=== PATIENT | female | born 1935 | race African-American/Black ===

== ENCOUNTER → 2016-05-11 | Outpatient (CLI) | payer MEDICARE, MEDICAID | LOC: WI 09:28 | PROVIDERS: ATTEND Internal Medicine Geriatric Medicine | DX: Z12.31 Encounter for screening mammogram for malignant neoplasm of breast (principal); Z78.0 Asymptomatic menopausal state | CPT/HCPCS: 77067; G0202 ==

== ENCOUNTER 2016-05-31 06:28 | Inpatient (IN) | payer MEDICARE, MEDICAID ==
[2016-05-31] MEDS ORDERED: ALBUTEROL SULFATE 0.083% NEB 2.5 MG/3 ML AMPUL NEB ONE ×2 (06:45→09:33)
--- NOTE | 2016-05-31 06:56 | ER Document Report ---
ED Respiratory Problem - General Time seen by provider: 06:30 Mode of Arrival: Medic Information source: Emergency Med Personnel, [facility] Records TRAVEL OUTSIDE OF THE [place] IN LAST 30 DAYS: No - HPI Patient complains to provider of: Cough, Short of breath Onset: Other - see HPI note Sputum color: Brown Associated symptoms: Congestion, Cough, Difficulty breathing, Wheezing <RADHA CHIN - Last Filed: 05/31/16 07:30> <LETTY RITTER - Last Filed: 05/31/16 17:51> - General Stated Complaint: RESPIRATORY DISTRESS Notes: Patient is a 80 year old female presenting to the emergency department for difficulty breathing. Patient's family state that the patient started getting sick on Sunday. Patient has a cough with brown sputum. Patient's cough has been very junky. Patient is on dialysis and attended her session on Sunday. Patient has dialysis on Sunday, Sunday, Sunday and patient is scheduled for dialysis today. Patient has a fistula on her right side. EMS states patient was 78% oxygen saturation on room air at arrival. Patient was placed on oxygen and brought into the ED. Upon arrival patient had O2 saturation in the lower to mid 90s. Patient was placed on BiPAP which brought her O2 saturation to 100%. Patient has bilateral BKA, hypertension, hypercholesterolemia, diabetes mellitus , gout, depression, and arthritis. Patient's PCP is Dr. Simon. (RADHA CHIN) This 80-year-old female patient brought to emergency room by EMS for shortness of breath with a brown productive cough for the past 2 days. She is supposed to go to dialysis this morning. She last dialyzed 2 days ago. She is noted to have wheezing throughout her chest. The patient was also found to be hypotensive. Her oxygen saturation was 89%, did improve with oxygen. After the patient arrived, she was placed on BiPAP and became more alert. She was able to state she has been coughing up brown sputum for a few days, and later that she started having pain in her right abdomen last night. Chest x-ray suggests some poor vascular congestion, but also multifocal infiltrates. Her lactic acid is elevated, her wheezing and rhonchi, her hypotension and history of brown sputum all fit a pattern of pneumonia. Initial labs came back, she was found to have a lactic acid 7.9, and AST of 1286 with ALT of 778. These serum transaminases were in the low normal range one-year ago. She had her gallbladder removed some time ago. Her blood pressure began to drop from the upper 90s into the 80s, so Levophed drip was started. The general surgeon on-call has come down to place a central line in the patient. (LETTY RITTER) - Related Data Allergies/Adverse Reactions: Penicillins Allergy (Verified 12/07/15 16:52) Home Medications: Current Home Medications Allopurinol [Zyloprim 100 mg Tablet] 100 mg PO DAILY 05/31/16 [History] Aspirin [Ecotrin 81 mg EC Tablet] 81 mg PO DAILY 05/31/16 [History] Atorvastatin Calcium [Lipitor 10 mg Tablet] 10 mg PO QHS 05/31/16 [History] Calcium Acetate [Phoslo 667 mg Capsule] 2 cap PO PCSUPPER 05/31/16 [History] Cetirizine HCl [Zyrtec 5 mg Tablet] 5 mg PO DAILY 05/31/16 [History] Cinacalcet HCl [Sensipar 60 mg Tablet] 60 mg PO DAILY 05/31/16 [History] Fluticasone Propionate [Flonase Nasal [place] 50 Mcg/[place] 16 gm] 1 spray NASL DAILY 05/31/16 [History] Insulin Regular, Human [Humulin R (Reg) Insulin 100 unit/mL] 8 unit SQ BID 05/31 [History] Magnesium Oxide [Mag-Ox 400 mg Tablet] 400 mg PO DAILY 05/31/16 [History] Midodrine HCl 2.5 mg PO TID 05/31/16 [History] NPH, Human Insulin Isophane [Humulin N (NPH) Insulin 100 unit/mL] 10 unit SQ BID 05/31/16 [History] Nateglinide [Starlix] 120 mg PO TID 05/31/16 [History] [place]-3 Fatty Acids/Fish Oil [Fish Oil 1,000 mg Capsule] 1 cap PO DAILY [History] Vit B Cmplx 3/FA/Vit C/Biotin [Nephro-[place] Rx Tablet] 1 tab PO DAILY 05/31/16 [ History] Zinc [Zinc Chelated] 50 mg PO DAILY 05/31/16 [History] Past Medical History - General Information source: Relative, Emergency Med Personnel, [facility] Records - Social History Smoking Status: Unknown if Ever Smoked Family History: Reviewed & Not Pertinent, DM - Past Medical History Cardiac Medical History: Reports: Hx Coronary Artery Disease, Hx Hypercholesterolemia, Hx Hypertension Endocrine Medical History: Reports: Hx Diabetes Mellitus Type 2 Musculoskeltal Medical History: Reports Hx Arthritis - GOUT Psychiatric Medical History: Reports: Hx Depression Past Surgical History: Reports: Hx Appendectomy, Hx Cholecystectomy, Hx Hysterectomy, Hx Orthopedic Surgery - bilateral BKA - Immunizations Hx Diphtheria, Pertussis, Tetanus Vaccination: No Hx Pneumococcal Vaccination: 04/13/05 <RADHA CHIN - Last Filed: 05/31/16 07:30> Review of Systems - Review of Systems Constitutional: No symptoms reported EENT: No symptoms reported Cardiovascular: No symptoms reported Respiratory: See HPI, Cough, Sputum, Wheezing Gastrointestinal: No symptoms reported Genitourinary: No symptoms reported Female Genitourinary: No symptoms reported Musculoskeletal: No symptoms reported Skin: No symptoms reported Hematologic/Lymphatic: No symptoms reported Neurological/Psychological: No symptoms reported -: Yes All other systems reviewed and negative <RADHA CHIN - Last Filed: 05/31/16 07:30> Physical Exam - Vital signs Interpretation: Hypotensive - 83/, Tachypneic - General General appearance: Alert, Other - appears confused In distress: Mild - HEENT Head: Normocephalic, Atraumatic Eyes: Normal Pupils: PERRL Mucous membranes: Moist - Respiratory Respiratory status: Tachypnea Chest status: Nontender Breath sounds: Rhonchi, Wheezing Chest palpation: Normal - Cardiovascular Rhythm: Regular, Tachycardia Heart sounds: Normal auscultation Murmur: No - Abdominal Inspection: Morbidly Obese Distension: No distension Bowel sounds: Normal Tenderness: Nontender Organomegaly: No organomegaly - Back Back: Normal, Nontender - Extremities General upper extremity: Normal inspection, Normal ROM, Normal strength General lower extremity: Other - bilateral BKA - Neurological Neuro grossly intact: Yes Cognition: Confused Orientation: AAOx4 [place] Coma Scale Eye Opening: Spontaneous [place] Coma Scale Verbal: Confused [place] Coma Scale Motor: Obeys Commands [place] Coma Scale Total: 14 - Psychological Associated symptoms: Normal affect, Normal mood - Skin Skin Temperature: Warm Skin Moisture: Dry <RADHA CHIN - Last Filed: 05/31/16 07:30> <LETTY RITTER - Last Filed: 05/31/16 17:51> - Vital signs Vitals: Resp 37 H 05/31/16 06:31 Resp 37 H 05/31/16 06:31 (RADHA CHIN) Course - Laboratory Result Diagrams: 05/31/16 06:35 05/31/16 06:35 <RADHA CHIN - Last Filed: 05/31/16 07:30> - Laboratory Result Diagrams: 05/31/16 06:35 05/31/16 08:18 - Diagnostic Test Radiology reviewed: Image reviewed, Reports reviewed - Chest x-ray shows mixed interstitial and airspace disease most likely a combination of pulmonary vascular congestion with pneumonia. - EKG Interpretation by Me EKG shows normal: Sinus rhythm, [place], Intervals, ST-T Waves. abnormal: QRS Complexes - Old anterior AR Rate: Tachycardia - 109 [place]/QRS: IVCD <LETTY RITTER - Last Filed: 05/31/16 17:51> - Re-evaluation Re-evalutation: 05/31/16 10:40 Patient care was discussed with Dr. Malhotra, he plans to dialyze the patient about noon today. Patient's case was discussed with Dr. Irvin, who will admit the patient to the intensive care unit. 05/31/16 10:41 The patient does have a sepsis pattern, her white blood cell count is unremarkable. Her elevated LFTs could be related to pulmonary vascular congestion but the transaminases are quite high. The chest x-ray improved on BiPAP suggesting this is mostly pulmonary vascular congestion. Family reports she has been coughing quite a bit, so it is possible that the right-sided abdominal pain is related to all the coughing she has been doing. Her abdomen is soft, she does have good bowel sounds, abdominal films are unremarkable, and her white blood cell count is normal. (LETTY RITTER) - Vital Signs Vital signs: Temp Pulse Resp BP Pulse Ox 99.8 F 122 H 17 119/63 100 05/31/16 17:30 05/31/16 17:30 05/31/16 17:30 05/31/16 17:30 05/31/16 17:30 - Laboratory Laboratory results interpreted by me: 05/31/16 05/31/16 05/31/16 06:35 06:35 08:18 RDW 16.5 H Plt Count 96 L Sodium 135.5 L Potassium 6.2 H* Chloride 92 L Carbon Dioxide 21 L Anion Gap 23 H BUN 50 H Creatinine 7.52 H Est GFR ( Amer) 6 L Est GFR (Non-Af Amer) 5 L Glucose 220 H Lactic Acid 7.9 H AST 1286 H ALT 778 H Alkaline Phosphatase 343 H Critical Care Note - Critical Care Note Total time excluding time spent on procedures (mins): 45 <LETTY RITTER - Last Filed: 05/31/16 17:51> Discharge <RADHA CHIN - Last Filed: 05/31/16 07:30> - Discharge [facility]mitting [facility]: [facility] Unit Admitted: ICU <LETTY RITTER - Last Filed: 05/31/16 17:51> - Discharge Clinical Impression: Bronchitis, Pulmonary vascular congestion, Hypoxemia, Elevated liver function tests, Right sided abdominal pain, Hyperkalemia Sepsis Qualifiers: Sepsis type: sepsis due to unspecified organism Qualified Code(s): A41.9 - Sepsis, unspecified organism Hypotension Qualifiers: Hypotension type: unspecified hypotension type Qualified Code(s): I95.9 - Hypotension, unspecified Chronic renal failure Qualifiers: Chronic kidney disease stage: stage 5 Qualified Code(s): N18.5 - Chronic kidney disease, stage 5 Condition: Fair Disposition: ADMITTED INPATIENT Scribe Documentation - Scribe Written by Scribjacklyn:: Radha Chin 05/31/16 7:30 acting as scribe for :: Uzma <RADHA CHIN - Last Filed: 05/31/16 07:30>
[2016-05-31 06:59] LABS: ABSOLUTE LYMPHOCYTES (AUTO) 1.8 10^3/uL (0.5-4.7); ABSOLUTE MONOCYTES (AUTO) 0.9 10^3/uL (0.1-1.4); ABSOLUTE NEUT (AUTO) 5.4 10^3/uL (1.7-8.2); BASOPHILS % (AUTO) 0.4 % (0-2); EOSINOPHILS % (AUTO) 0.1 % (0-6); HEMATOCRIT 40.6 % (36.0-47.0); HEMOGLOBIN 13.1 g/dL (12.0-15.5); HGB HCT DIFFERENCE -1.3; MEAN CORPUSCULAR HEMOGLOBIN 28.9 pg (27.0-33.4); MEAN CORPUSCULAR HGB CONC 32.2 g/dL (32.0-36.0); MEAN CORPUSCULAR VOLUME 90 fl (80-97); MONOCYTES % (AUTO) 10.6 % (3-13); RED BLOOD COUNT 4.52 10^6/uL (3.72-5.28); RED CELL DISTRIBUTION WIDTH 16.5 % (11.5-14.0); SEGMENTED NEUTROPHILS % (AUTO) 66.9 % (42-78); WHITE BLOOD COUNT 8.1 10^3/uL (4.0-10.5)
[2016-05-31] MEDS ORDERED: LEVOFLOXACIN 750 MG/D5W RTU 150 ML IV ONE (07:14)
--- NOTE | 2016-05-31 08:25 | EKG REPORT ---
SEVERITY:- ABNORMAL ECG - LIKELT SINUS TACHYCARDIA NONSPECIFIC INTRAVENTRICULAR CONDUCTION DELAY OLD ANATERIOR UT : Confirmed by: Chad Lynch MD 31-May-2016 08:25:19
[2016-05-31] MEDS ORDERED: DEXTROSE 5%-WATER 250 ML with NOREPINEPHRINE BITARTRATE 4 MG IV PRN ×4 (08:39→17:05)
[2016-05-31] MEDS ORDERED: NOREPINEPHRINE BITARTRATE INJ/PF 4 MG/4 ML SDV IV ONE ×2 (08:45→08:46)
[2016-05-31 08:49] LABS: ALANINE AMINOTRANSFERASE 778 U/L (9-52); ALBUMIN 3.6 g/dL (3.5-5.0); ALKALINE PHOSPHATASE 343 U/L (38-126); BILIRUBIN,TOTAL 1.2 mg/dL (0.2-1.3); BLOOD UREA NITROGEN 50 mg/dL (7-20); CALCIUM 9.2 mg/dL (8.4-10.2); CARBON DIOXIDE 21 mmol/L (22-30); CREATINE KINASE 89 U/L (30-135); CREATININE RESULT 7.52 mg/dL (0.52-1.25); GLUCOSE 220 mg/dL (75-110); MAGNESIUM 2.3 mg/dL (1.6-2.3); TOTAL PROTEIN 6.9 g/dL (6.3-8.2)
[2016-05-31 08:59] LABS: ASPARTATE AMINO TRANSFERASE 1286 U/L (14-36)
[2016-05-31 09:01] LABS: CREATINE KINASE MB 1.15 ng/mL (<4.55)
[2016-05-31 09:02] LABS: CHLORIDE 92 mmol/L (98-107); SODIUM 135.5 mmol/L (137-145)
[2016-05-31 09:03] LABS: ANION GAP 23 (5-19)
[2016-05-31 09:04] LABS: POTASSIUM 6.2 mmol/L (3.6-5.0); TROPONIN I 0.059 ng/mL
[2016-05-31 09:27] LABS: ADD ON TESTING BLD IN LAB ACKNOWLEDGE
[2016-05-31] MEDS ORDERED: METRONIDAZOLE 500 MG/NS RTU 100 ML IV ONE (09:32)
[2016-05-31] MEDS ORDERED: CALCIUM GLUCONATE 1000 MG/10 ML INJ IV ONE (09:33)
[2016-05-31] MEDS ORDERED: SODIUM BICARBONATE 8.4% INJ 50 MEQ/50 ML DISP.SYRIN IV ONE (09:33)
[2016-05-31 09:43] LABS: LIPASE 236.7 U/L (23-300)
--- NOTE | 2016-05-31 10:58 | OPERATIVE REPORT E ---
Operative Report NAME: TAYO MATHEW : 1935 AGE: 80Y DATE OF SURGERY: 05/31/2016 ROOM: REASON FOR PROCEDURE/INDICATIONS: The patient is a 80-year-old woman with hypotension who I was asked to see in the emergency room for a central line placement. PROCEDURE: Right internal jugular central line using ultrasound guidance. SURGEON: SRIRAM DOBSON M.D. ANESTHESIA: Local. PROCEDURE: The patient, after informed consent, positive identification, and time out, had standard prep and drape with sterile technique with gowns and gloves. The ultrasound was brought into the field in a sterile fashion and with ultrasound localization the right internal jugular vein was cannulated after local anesthesia with Xylocaine. The guidewire was passed over the needle and then using a Seldinger technique the vein was dilated and a central line was passed without difficulty over the guidewire. The guidewire was removed and the line was secured in place with a 3-0 silk suture provided. Sterile dressing was placed. The ports were all flushed and aspirated in an adequate fashion and subsequent chest x-ray revealed no hemo- or pneumothorax and adequate positioning of the central line. DICTATING PHYSICIAN: POP DOBSON M.D. [id number] PHY#: [id number] ID: [id number] JOB#: [id number] ACCT: [id number] cc:SRIRAM DOBSON M.D. >
[2016-05-31 12:51] LABS: ARTERIAL BLOOD BASE EXCESS -7.5 mmol/L; ARTERIAL BLOOD O2 SATURATION 98.2 % (94-98)
[2016-05-31] MEDS ORDERED: ACETAMINOPHEN 325 MG TABLET PO PRN (18:11)
--- NOTE | 2016-05-31 18:50 | PDOC H&P ---
History of Present Illness Admission Date/PCP: 05/31/16 11:28 [facility] Patient complains of: Congestion, Cough, Difficulty breathing, Wheezing History of Present Illness: TAYO MATHEW is a 80 year old female brought to ED by medic with complain of worsening difficulty with breathing with associated wheezing and hypoxemia. Patient reported productive coughing over last couple of days with brownish sputum production. She denied any significant fever or chills but did reported been cold all the time. She denied any significant nasal or sinus congestion. She has history of ESRD on hemodialysis on Sunday , Sunday and Sunday. Her last dialysis was 2 days ago. She was schedule for hemodialysis today but not able to attend due to her worsening difficulty with breathing. Upon arrival of medic personnel she was found with oxygen saturation in 78% on room air, hypotensive and somewhat confused. Her oxygenation did improved with oxygen supplementation but her hypotension persist with abnormal chest x ray findings suggestive of pulmonary vascular congestion versus air space disease process. In view of these findings she was started on BiPAP support and pressure support with recommendation made for ICU admission. She will receive hemodialysis supplementation today. Her other comorbidities include Diabetes mellitus type 2 , hypertension, hyperlipidemia, chronic gouty arthritis, osteoarthritis, bilateral AKA, and depression. Her initial laboratory assessment did suggest elevated hepatic transaminases and alkaline phosphatase Past Medical History Cardiac Medical History: Reports: Coronary Artery Disease, Hyperlipidema, Hypertension Denies: Myocardial Infarction Pulmonary Medical History: Denies: Asthma, Bronchitis, Chronic Obstructive Pulmonary Disease (COPD), Pneumonia, Tuberculosis Neurological Medical History: Denies: Seizures Endocrine Medical History: Reports: Diabetes Mellitus Type 2 Musculoskeltal Medical History: Reports: Arthritis - GOUT Psychiatric Medical History: Reports: Depression Hematology: Reports: Anemia Past Surgical History Past Surgical History: Reports: Appendectomy, Cholecystectomy, Hysterectomy, Orthopedic Surgery - bilateral BKA Social History Smoking Status: Unknown if Ever Smoked Frequency of Alcohol Use: None Hx Recreational Drug Use: No Hx Prescription Drug Abuse: No Family History Family History: Reviewed & Not Pertinent, DM Parental Family History Reviewed: Yes Children Family History Reviewed: Yes Sibling(s) Family History Reviewed.: Yes Medication/Allergy Home Medications: Allopurinol [Zyloprim 100 mg Tablet] 100 mg PO DAILY 05/31/16 Aspirin [Ecotrin 81 mg EC Tablet] 81 mg PO DAILY 05/31/16 Atorvastatin Calcium [Lipitor 10 mg Tablet] 10 mg PO QHS 05/31/16 Calcium Acetate [Phoslo 667 mg Capsule] 2 cap PO PCSUPPER 05/31/16 Cetirizine HCl [Zyrtec 5 mg Tablet] 5 mg PO DAILY 05/31/16 Cinacalcet HCl [Sensipar 60 mg Tablet] 60 mg PO DAILY 05/31/16 Fluticasone Propionate [Flonase Nasal [place] 50 Mcg/[place] 16 gm] 1 spray NASL DAILY 05/31/16 Insulin Regular, Human [Humulin R (Reg) Insulin 100 unit/mL] 8 unit SQ BID 05/31 Magnesium Oxide [Mag-Ox 400 mg Tablet] 400 mg PO DAILY 05/31/16 Midodrine HCl 2.5 mg PO TID 05/31/16 NPH, Human Insulin Isophane [Humulin N (NPH) Insulin 100 unit/mL] 10 unit SQ BID 05/31/16 Nateglinide [Starlix] 120 mg PO TID 05/31/16 [place]-3 Fatty Acids/Fish Oil [Fish Oil 1,000 mg Capsule] 1 cap PO DAILY Vit B Cmplx 3/FA/Vit C/Biotin [Nephro-[place] Rx Tablet] 1 tab PO DAILY 05/31/16 Zinc [Zinc Chelated] 50 mg PO DAILY 05/31/16 Allergies/Adverse Reactions: Penicillins Allergy (Verified 12/07/15 16:52) Review of Systems Constitutional: PRESENT: weakness Ears: PRESENT: hearing changes Nose, Mouth, and Throat: ABSENT: as per HPI, headache(s), mouth pain, sore throat, vertigo, other Cardiovascular: ABSENT: as per HPI, chest pain, dyspnea on exertion, edema, orthropnea, palpitations, other Respiratory: PRESENT: cough, dyspnea, sputum. ABSENT: as per HPI, hemoptysis, other Gastrointestinal: PRESENT: abdominal pain - generalized but more to right upper quadrant region. ABSENT: as per HPI, bloating, coffee ground emesis, constipation, diarrhea, dysphagia, heartburn, hematemesis, hematochezia, melena , nausea, vomiting, other Genitourinary: PRESENT: other - on hemodialysis Musculoskeletal: PRESENT: other - generalized aches and pain Integumentary: ABSENT: as per HPI, diaphoresis, erythema, lesions, pruritus, rash, wounds, other Neurological: PRESENT: abnormal gait - wheelchair and bed bound due to bilateral AKA, confusion - improved with oxygenation. ABSENT: as per HPI, abnormal movements, abnormal speech, convulsions, dizziness, focal weakness, frequent falls, lack of coordination, memory loss, numbness, paresthesias, restless legs, syncope, tingling, tremor(s), vertigo, weakness, other Psychiatric: ABSENT: as per HPI, anxiety, depression, hallucinations, homidical ideation, suicidal ideation, other Endocrine: PRESENT: cold intolerance. ABSENT: as per HPI, flushing, heat intolerance, menstrual abnormalities, polydipsia, polyphagia, polyuria, other Hematologic/Lymphatic: ABSENT: as per HPI, easy bleeding, easy bruising, lymphadenopathy, other Physical Exam Vital Signs: Temp Pulse Resp BP Pulse Ox 99.8 F 122 H 17 119/63 100 05/31/16 17:30 05/31/16 17:30 05/31/16 17:30 05/31/16 17:30 05/31/16 17:30 Intake & Output 05/30/16 05/31/16 06/01/16 06:59 06:59 06:59 Weight 125.7 kg General appearance: PRESENT: no acute distress, cooperative, mild distress - remain on BiPAP support Head exam: PRESENT: atraumatic, normocephalic Eye exam: PRESENT: conjunctiva pink, EOMI, PERRLA. ABSENT: scleral icterus Ear exam: PRESENT: normal external ear exam Mouth exam: PRESENT: dry mucosa Neck exam: PRESENT: full ROM. ABSENT: carotid bruit, JVD, lymphadenopathy, thyromegaly Respiratory exam: PRESENT: crackles - scattered at lung bases, decreased breath sounds - bilaterally, tachypnea. ABSENT: accessory muscle use, chest wall tenderness, clear to auscultation aleta, prolonged expiratory phas, rales, retraction, rhonchi, stridor, symmetrical, unlabored, wheezes, other Cardiovascular exam: PRESENT: tachycardia. ABSENT: bradycardia, clicks, diastolic murmur, gallop, irregular rhythm, RRR, rubs, +S1, +S2, systolic murmur , other Vascular exam: PRESENT: normal capillary refill GI/Abdominal exam: PRESENT: tenderness - nonspecific. ABSENT: ascites, diminished bowel sounds, distended, firm, guarding, hernia, hyperactive bowel sounds, hypoactive bowel sounds, mass, Jaramillo's sign, normal bowel sounds, organolmegaly, rebound, rigid, soft, other Extremities exam: PRESENT: left AKA, right AKA Musculoskeletal exam: PRESENT: deformity - related to joint involvement with arthritis Neurological exam: PRESENT: alert, awake, motor sensory deficit Psychiatric exam: PRESENT: appropriate affect, normal mood. ABSENT: homicidal ideation, suicidal ideation Results Laboratory Results: 05/31/16 05/31/16 12:03 12:12 Carbonic Acid 1.13 HCO3/H2CO3 Ratio 16:1 ABG pH 7.30 L ABG pCO2 37.4 ABG pO2 125.3 H ABG HCO3 18.1 L ABG O2 Saturation 98.2 H ABG Base Excess -7.5 FiO2 35% Lactic Acid 7.1 H Impressions: Chest X-Ray 05/31/16 06:36 IMPRESSION: Mild mixed interstitial and airspace opacity and pulmonary vascular congestion pattern. Differential diagnosis includes pulmonary edema, CHF, and pneumonia. Acute Abdomen Series 05/31/16 09:34 IMPRESSION: Post right jugular central line placement with the tip in the superior vena cava. No pneumothorax. Nonspecific nonobstructive bowel gas pattern. Clips right upper quadrant post cholecystectomy. Assessment & Plan - Diagnosis (1) Acute respiratory failure with hypoxemia Is this a current diagnosis for this admission?: YesPlan: See admitting attending orders. (2) ESRD on hemodialysis Is this a current diagnosis for this admission?: YesPlan: See admitting attending orders. (3) Diabetes mellitus type 2 in obese Is this a current diagnosis for this admission?: YesPlan: See admitting attending orders. (4) HLD (hyperlipidemia) Qualifiers: Hyperlipidemia type: pure hypercholesterolemia Qualified Code(s): E78.00 - Pure hypercholesterolemia, unspecified; E78.0 - Pure hypercholesterolemia Is this a current diagnosis for this admission?: YesPlan: See admitting attending orders. (5) Gouty arthropathy Is this a current diagnosis for this admission?: YesPlan: See admitting attending orders. (7) Sepsis Qualifiers: Sepsis type: sepsis due to unspecified organism Qualified Code(s): A41.9 - Sepsis, unspecified organism Is this a current diagnosis for this admission?: YesPlan: See admitting attending orders. - Time Time Spent: Greater than 70 Minutes Critical Time spent with patient: 15-24 minutes Medications reviewed and adjusted accordingly: Yes Anticipated discharge: Home with Homehealth - Inpatient Certification Based on my medical assessment, after consideration of the patient's comorbidities, presenting symptoms, or acuity I expect that the services needed warrant INPATIENT care.: Yes I certify that my determination is in accordance with my understanding of Medicare's requirements for reasonable and necessary INPATIENT services [42 CFR 412.3e].: Yes Medical Necessity: Need Close Monitoring Due to Risk of Patient Decompensation, Need For IV Fluids, Need For Continuous Telemetry Monitoring, Need for IV Antibiotics, Risk of Complication if Not Cared For in Hospital Post Hospital Care: D/C [facility] [employer] Documentation - Plan Summary Plan Summary: See admitting attending orders.
[2016-05-31 19:22] LABS: PROTHROMBIN TIME 17.9 SEC (11.4-15.4)
[2016-05-31 19:23] LABS: PARTIAL THROMBOPLASTIN TIME 42.5 SEC (23.5-35.8)
--- NOTE | 2016-05-31 19:38 | PDOC CONSULTATION ---
Consultation Consult Date: 05/31/16 Consult reason:: Hemodialysis in the setting of severe hyperkalemia History of Present Illness Admission Date/PCP: 05/31/16 15:50 KATELYN CASTILLO History of Present Illness: TYAO MATHEW is a 80 year old female history of ESRD on hemodialysis in the background of diabetes, was brought to ED by medic with complain of worsening difficulty with breathing with associated wheezing and hypoxemia. Patient reported productive coughing over last couple of days with brownish sputum production. She denied any significant fever or chills but did reported been cold all the time. She denied any significant nasal or sinus congestion. She has history of ESRD on hemodialysis on Sunday , Sunday and Sunday. Her last dialysis was 2 days ago. She was schedule for hemodialysis today but not able to attend due to her worsening difficulty with breathing. Upon arrival of medic personnel she was found with oxygen saturation in 78% on room air, hypotensive and somewhat confused. Her oxygenation did improved with oxygen supplementation but her hypotension persist with abnormal chest x ray findings suggestive of pulmonary vascular congestion versus air space disease process. In view of these findings she was started on BiPAP support and pressure support with recommendation made for ICU admission. Her other comorbidities include Diabetes mellitus type 2, chronic hypotension on midodrine, hyperlipidemia, chronic gouty arthritis, osteoarthritis, bilateral AKA, and depression. Her initial laboratory assessment showed elevated hepatic transaminases and alkaline phosphatase. Was given bolus fluids and started on Levophed and being transferred to the ICU. Currently she is being seen on hemodialysis in undergoing dialysis without any issues. Blood pressures on the low 100 systolic. Clinically she looks dehydrated. Fluid removal is on a bit difficult as when try to remove she gets tachycardic. Clinical evaluations also indicated that she most likely has pneumonia with the edema than pulmonary vascular congestion. Past Medical History Cardiac Medical History: Reports: Coronary Artery Disease, Hyperlipidemia Denies: Myocardial Infarction Pulmonary Medical History: Denies: Asthma, Bronchitis, Chronic Obstructive Pulmonary Disease (COPD), Pneumonia, Tuberculosis Neurological Medical History: Denies: Seizures Endocrine Medical History: Reports: Diabetes Mellitus Type 2 Renal/ Medical History: Reports: End Stage Renal Disease, Hyperphosphatemia Musculoskeltal Medical History: Reports: Arthritis - GOUT Psychiatric Medical History: Reports: Depression Hematology Medical History: Reports Anemia of Chronic Kidney Disease Past Surgical History Past Surgical History: Reports: Appendectomy, Cholecystectomy, Hysterectomy, Orthopedic Surgery - bilateral BKA Social History Smoking Status: Unknown if Ever Smoked Frequency of Alcohol Use: None Hx Recreational Drug Use: No Hx Prescription Drug Abuse: No Family History Parental Family History Reviewed: Yes - negative for ESRD Children Family History Reviewed: No Sibling(s) Family History Reviewed.: No Medication/Allergy Home Medications: Allopurinol [Zyloprim 100 mg Tablet] 100 mg PO DAILY 05/31/16 Aspirin [Ecotrin 81 mg EC Tablet] 81 mg PO DAILY 05/31/16 Atorvastatin Calcium [Lipitor 10 mg Tablet] 10 mg PO QHS 05/31/16 Calcium Acetate [Phoslo 667 mg Capsule] 2 cap PO PCSUPPER 05/31/16 Cetirizine HCl [Zyrtec 5 mg Tablet] 5 mg PO DAILY 05/31/16 Cinacalcet HCl [Sensipar 60 mg Tablet] 60 mg PO DAILY 05/31/16 Fluticasone Propionate [Flonase Nasal Mobile 50 Mcg/Mobile 16 gm] 1 spray NASL DAILY 05/31/16 Insulin Regular, Human [Humulin R (Reg) Insulin 100 unit/mL] 8 unit SQ BID 05/31 Magnesium Oxide [Mag-Ox 400 mg Tablet] 400 mg PO DAILY 05/31/16 Midodrine HCl 2.5 mg PO TID 05/31/16 NPH, Human Insulin Isophane [Humulin N (NPH) Insulin 100 unit/mL] 10 unit SQ BID 05/31/16 Nateglinide [Starlix] 120 mg PO TID 05/31/16 [place]-3 Fatty Acids/Fish Oil [Fish Oil 1,000 mg Capsule] 1 cap PO DAILY Vit B Cmplx 3/FA/Vit C/Biotin [Nephro-[place] Rx Tablet] 1 tab PO DAILY 05/31/16 Zinc [Zinc Chelated] 50 mg PO DAILY 05/31/16 Allergies/Adverse Reactions: Penicillins Allergy (Verified 12/07/15 16:52) Physical Exam Vital Signs: Temp Pulse Resp BP Pulse Ox 99.8 F 122 H 19 108/79 100 05/31/16 17:30 05/31/16 17:30 05/31/16 18:44 05/31/16 18:44 05/31/16 17:30 Intake & Output 05/30/16 05/31/16 06/01/16 06:59 06:59 06:59 Weight 125.7 kg General appearance: PRESENT: mild distress - on BiPAP. Exam: Constitutional: [PRESENT: as per HPI. ABSENT: chills, fever(s), headache(s), weight gain, weight loss] Eyes: [ABSENT: visual disturbances] Ears: [ABSENT: hearing changes] Cardiovascular: [ABSENT: chest pain, edema, orthropnea, palpitations]] Gastrointestinal: [ABSENT: abdominal pain, constipation, diarrhea, hematemesis, hematochezia, nausea, vomiting] Genitourinary: [ABSENT: dysuria, hematuria] Musculoskeletal: [ABSENT: joint swelling] Integumentary: [ABSENT: rash, wounds] Neurological: [ABSENT: abnormal gait, abnormal speech, confusion, dizziness, focal weakness, syncope] Psychiatric: [ABSENT: anxiety, depression, homicidal ideation, suicidal ideation ] Endocrine: [ABSENT: cold intolerance, heat intolerance, polydipsia, polyuria] Hematologic/Lymphatic: [ABSENT: easy bleeding, easy bruising, lymphadenopathy] Eye exam: PRESENT: conjunctiva pink, EOMI, PERRLA Ear exam: PRESENT: normal external ear exam Mouth exam: PRESENT: moist Neck exam: ABSENT: lymphadenopathy, meningismus, tenderness, thyromegaly, tracheal deviation Respiratory exam: PRESENT: clear to auscultation aleta, crackles, rhonchi Cardiovascular exam: PRESENT: +S1, +S2 GI/Abdominal exam: PRESENT: soft. ABSENT: distended, firm, guarding Extremities exam: ABSENT: pedal edema Neurological exam: PRESENT: awake, oriented to person. ABSENT: oriented to place, oriented to time Skin exam: PRESENT: dry. ABSENT: erythema, mottled, rash Results Impressions: Chest X-Ray 05/31/16 06:36 IMPRESSION: Mild mixed interstitial and airspace opacity and pulmonary vascular congestion pattern. Differential diagnosis includes pulmonary edema, CHF, and pneumonia. Acute Abdomen Series 05/31/16 09:34 IMPRESSION: Post right jugular central line placement with the tip in the superior vena cava. No pneumothorax. Nonspecific nonobstructive bowel gas pattern. Clips right upper quadrant post cholecystectomy. Assessment & Plan - Diagnosis (1) Acute respiratory failure with hypoxemia Is this a current diagnosis for this admission?: YesPlan: On BiPAP. She looks like she has more pneumonic picture than in heart failure. She is also in septic shock on pressor agents and extraction of fluid on dialysis is not ideal given circumstances for obvious reasons. (2) Diabetes mellitus type 2 in obese Is this a current diagnosis for this admission?: Yes (3) ESRD on hemodialysis Is this a current diagnosis for this admission?: YesPlan: The going dialysis currently. Orders were discussed with the treating dialysis nurse. She is currently on a 2K bath to correct the hyperkalemia. Looks like fluid extraction is currently going to be minimal and in fact she might be positive by the end of dialysis if she shows any signs of hemodynamic instability. (4) Elevated liver function tests Plan: Might need further evaluations of her gallbladder and liver. Differentials also includes sepsis/septic shock. (5) Hyperkalemia Plan: Should respond to hemodialysis currently undergoing. Continue to monitor. (6) Hypotension Qualifiers: Hypotension type: unspecified hypotension type Qualified Code(s): I95.9 - Hypotension, unspecified Plan: Differential includes septic shock. Unlikely to be cardiogenic shock. Patient' s on antibiotics and Levophed. Continue to monitor. Patient is quite critical.
[2016-05-31] MEDS ORDERED: PHENYLEPHRINE HCL INJ/PF 10 MG/1 ML SDV ONE (20:50)
[2016-05-31] MEDS ORDERED: DILTIAZEM HCL/D5W 125 MG/125 ML RTUINJ IV ONE (21:00)
[2016-05-31] MEDS: AZITHROMYCIN 500 MG in DEXTROSE 5%-WATER 250 ML IV SCH (21:13)
[2016-05-31] MEDS: HEPARIN SOD (PORCINE) 5,000 UNIT/ML 1 ML SYRINGE SUBCUT SCH (21:23)
[2016-05-31] MEDS: CLINDAMYCIN 600 MG/D5W RTU 50 ML IV SCH (21:24)
[2016-05-31] MEDS ORDERED: DILTIAZEM HCL/D5W 125 MG/125 ML RTUINJ IV PRN (22:18)
[2016-06-01] MEDS: DEXTROSE 5%-WATER 250 ML with PHENYLEPHRINE HCL 40 MG IV PRN ×14 (00:16→23:41)
[2016-06-01] MEDS: CLINDAMYCIN 600 MG/D5W RTU 50 ML IV SCH ×3 (05:07→22:40)
[2016-06-01] MEDS: HEPARIN SOD (PORCINE) 5,000 UNIT/ML 1 ML SYRINGE SUBCUT SCH ×3 (05:16→22:40)
[2016-06-01] MEDS: LANSOPRAZOLE 30 MG TAB.RAP.DR PO SCH (05:18)
[2016-06-01 07:41] LABS: ABSOLUTE EOSINOPHILS # (AUTO) 0.1 10^3/uL (0.0-0.6); ABSOLUTE LYMPHOCYTES (AUTO) 1.8 10^3/uL (0.5-4.7); ABSOLUTE MONOCYTES (AUTO) 0.7 10^3/uL (0.1-1.4); ABSOLUTE NEUT (AUTO) 5.5 10^3/uL (1.7-8.2); BASOPHILS % (AUTO) 0.3 % (0-2); EOSINOPHILS % (AUTO) 0.7 % (0-6); HEMATOCRIT 36.5 % (36.0-47.0); HGB HCT DIFFERENCE -0.5; LYMPHOCYTES % (AUTO) 22.2 % (13-45); MEAN CORPUSCULAR HEMOGLOBIN 29.3 pg (27.0-33.4); MEAN CORPUSCULAR HGB CONC 32.9 g/dL (32.0-36.0); MEAN CORPUSCULAR VOLUME 89 fl (80-97); MONOCYTES % (AUTO) 8.3 % (3-13); RED CELL DISTRIBUTION WIDTH 16.3 % (11.5-14.0); SEGMENTED NEUTROPHILS % (AUTO) 68.5 % (42-78)
[2016-06-01 07:50] LABS: ALBUMIN 3.3 g/dL (3.5-5.0); ALKALINE PHOSPHATASE 359 U/L (38-126); BILIRUBIN,TOTAL 1.6 mg/dL (0.2-1.3); BLOOD UREA NITROGEN 31 mg/dL (7-20); CALCIUM 9.1 mg/dL (8.4-10.2); CHLORIDE 92 mmol/L (98-107); GLUCOSE 169 mg/dL (75-110); TOTAL PROTEIN 6.6 g/dL (6.3-8.2)
[2016-06-01 08:26] LABS: ALANINE AMINOTRANSFERASE 2107 U/L (9-52); ASPARTATE AMINO TRANSFERASE 3038 U/L (14-36)
[2016-06-01 08:35] LABS: ANION GAP 20 (5-19); CARBON DIOXIDE 25 mmol/L (22-30); SODIUM 136.7 mmol/L (137-145)
[2016-06-01 08:36] LABS: POTASSIUM 4.9 mmol/L (3.6-5.0)
[2016-06-01] MEDS: NORMAL SALINE 1000 ML 1,000 ML IV PRN (09:42)
[2016-06-01] MEDS: MIDODRINE HCL 5 MG TABLET PO SCH ×2 (13:27→22:42)
[2016-06-01] MEDS: METHYLPREDNISOLONE INJ 40 MG/1 ML SDV IV SCH ×2 (13:27→22:36)
--- NOTE | 2016-06-01 13:48 | PDOC PROGRESS REPORT ---
Subjective Progress Note for:: 06/01/16 Subjective:: Saw Mrs. Medrano in the ICU today. She continues to be on BiPAP. She denies any history of chest pain. However she is got some tenderness in the right upper quadrant. No history of any fever or chills. Discussions were done with the treating nurse Fátima. She still continues to be on Levophed. She had no issues on dialysis yesterday but we could not extract much fluid given the fact she is in septic shock. Labs were reviewed with the nurse. Physical Exam Vital Signs: Temp Pulse Resp BP Pulse Ox 98.3 F 76 20 103/62 98 06/01/16 13:00 06/01/16 13:00 06/01/16 13:00 06/01/16 13:00 06/01/16 13:00 Intake & Output 05/31/16 06/01/16 06/02/16 06:59 06:59 06:59 Intake Total 1100 Output Total 500 0 Balance 600 0 Weight 126.4 kg General appearance: PRESENT: mild distress Respiratory exam: PRESENT: clear to auscultation aleta, rhonchi, tachypnea. ABSENT: crackles Cardiovascular exam: PRESENT: +S1, +S2 GI/Abdominal exam: PRESENT: soft, tenderness - The right upper quadrant. Mild. No guarding.. ABSENT: distended, firm, guarding Extremities exam: ABSENT: pedal edema Skin exam: ABSENT: erythema, mottled, rash Results Laboratory Results: 06/01/16 06:30 06/01/16 06:30 06/01/16 06/01/16 06:30 06:30 WBC 8.0 RBC 4.10 Hgb 12.0 Hct 36.5 MCV 89 MCH 29.3 MCHC 32.9 RDW 16.3 H Plt Count 99 L Seg Neutrophils % 68.5 Lymphocytes % 22.2 Monocytes % 8.3 Eosinophils % 0.7 Basophils % 0.3 Absolute Neutrophils 5.5 Absolute Lymphocytes 1.8 Absolute Monocytes 0.7 Absolute Eosinophils 0.1 Absolute Basophils 0.0 Sodium 136.7 L Potassium 4.9 D Chloride 92 L Carbon Dioxide 25 Anion Gap 20 H BUN 31 H Creatinine 5.30 H Est GFR ( Amer) 9 L Est GFR (Non-Af Amer) 8 L Glucose 169 H Calcium 9.1 Total Bilirubin 1.6 H AST 3038 H ALT 2107 H Alkaline Phosphatase 359 H Total Protein 6.6 Albumin 3.3 L Impressions: Acute Abdomen Series 05/31/16 09:34 IMPRESSION: Post right jugular central line placement with the tip in the superior vena cava. No pneumothorax. Nonspecific nonobstructive bowel gas pattern. Clips right upper quadrant post cholecystectomy. Chest X-Ray 06/01/16 06:00 IMPRESSION: Consider 10 cm central line retraction. Otherwise, stable. Assessment & Plan - Diagnosis (1) Acute respiratory failure with hypoxemia Is this a current diagnosis for this admission?: YesPlan: Looks like she has got pneumonia with also an element of COPD. Will initiate steroids. Discussed with nurse. (2) Diabetes mellitus type 2 in obese Is this a current diagnosis for this admission?: Yes (3) ESRD on hemodialysis Is this a current diagnosis for this admission?: YesPlan: Patient presently stable electrolytes are stable. No evidence of fluid overload. Plan for dialysis in the morning. (4) Elevated liver function tests Plan: She is got progressive abnormal LFTs. She is also tender in the right upper quadrant. She says she has had a cholecystectomy. Needs further evaluations. Will order liver gall bladder ultrasound and see what what that shows. (5) Hyperkalemia Plan: Resolved postdialysis. Monitor. (6) Hypotension Qualifiers: Hypotension type: unspecified hypotension type Qualified Code(s): I95.9 - Hypotension, unspecified Plan: From septic shock. Start on fluids. Discussed with nurse. Also she was on Midodrin in the past. Her baseline blood pressures in the upper 90s to low 100 systolics only. However when she was taken off the Levophed the nurse that she dropped into the 60s systolics which is too low. (7) Septic shock Plan: Start IV fluids. Titrate Levophed. Starting midodrine. She should also respond to the Solu-Medrol that we are putting on for COPD exacerbation
--- NOTE | 2016-06-01 19:20 | PDOC PROGRESS REPORT ---
Subjective Progress Note for:: 06/01/16 Subjective:: Patient was seen in the bedside, she has positive pressure ventilation with BiPAP, she is in septic shock and she is on maximal dose of Stas-Synephrine. I had a long discussion and with patient's family about CODE STATUS and advanced care planning, patient does not want any heroic measures including mechanical ventilation, or chest compression she wants to be DO NOT RESUSCITATE if she should develop cardiac arrest. Physical Exam Vital Signs: Temp Pulse Resp BP Pulse Ox 99.2 F 100 18 94/70 L 97 06/01/16 15:00 06/01/16 15:00 06/01/16 16:45 06/01/16 16:45 06/01/16 16:45 Intake & Output 05/31/16 06/01/16 06/02/16 06:59 06:59 06:59 Intake Total 1100 Output Total 500 0 Balance 600 0 Weight 126.4 kg General appearance: PRESENT: mild distress Eye exam: PRESENT: PERRLA Respiratory exam: PRESENT: crackles Cardiovascular exam: PRESENT: +S1, +S2 GI/Abdominal exam: PRESENT: soft Extremities exam: PRESENT: other - Bilateral lower extremity amputation Neurological exam: PRESENT: alert, CN II-XII grossly intact Results Laboratory Results: 06/01/16 06:30 06/01/16 06:30 06/01/16 06/01/16 06:30 06:30 WBC 8.0 RBC 4.10 Hgb 12.0 Hct 36.5 MCV 89 MCH 29.3 MCHC 32.9 RDW 16.3 H Plt Count 99 L Seg Neutrophils % 68.5 Lymphocytes % 22.2 Monocytes % 8.3 Eosinophils % 0.7 Basophils % 0.3 Absolute Neutrophils 5.5 Absolute Lymphocytes 1.8 Absolute Monocytes 0.7 Absolute Eosinophils 0.1 Absolute Basophils 0.0 Sodium 136.7 L Potassium 4.9 D Chloride 92 L Carbon Dioxide 25 Anion Gap 20 H BUN 31 H Creatinine 5.30 H Est GFR ( Amer) 9 L Est GFR (Non-Af Amer) 8 L Glucose 169 H Calcium 9.1 Total Bilirubin 1.6 H AST 3038 H ALT 2107 H Alkaline Phosphatase 359 H Total Protein 6.6 Albumin 3.3 L Impressions: Acute Abdomen Series 05/31/16 09:34 IMPRESSION: Post right jugular central line placement with the tip in the superior vena cava. No pneumothorax. Nonspecific nonobstructive bowel gas pattern. Clips right upper quadrant post cholecystectomy. Abdomen Ultrasound 06/01/16 00:00 IMPRESSION: Limited study. No acute abnormality identified. Hepatic steatosis. Chest X-Ray 06/01/16 06:00 IMPRESSION: Consider 10 cm central line retraction. Otherwise, stable. Assessment & Plan - Diagnosis (1) Septic shock Is this a current diagnosis for this admission?: YesPlan: She is on maximum dose of Stas-Synephrine, intravenous norepinephrine to be added to optimize blood pressure control (2) Pneumonia Qualifiers: Pneumonia type: due to unspecified organism Laterality: unspecified laterality Lung location: unspecified part of lung Qualified Code(s) : J18.9 - Pneumonia, unspecified organism Is this a current diagnosis for this admission?: Yes (3) Acute respiratory failure with hypoxemia Is this a current diagnosis for this admission?: YesPlan: She will continue BiPAP support, she was made a DO NOT RESUSCITATE status according to patient and the POA (4) Diabetes mellitus type 2 in obese Is this a current diagnosis for this admission?: Yes (5) ESRD on hemodialysis Is this a current diagnosis for this admission?: Yes (7) Gouty arthropathy Is this a current diagnosis for this admission?: Yes
[2016-06-01] MEDS: DEXTROSE 5%-WATER 250 ML with NOREPINEPHRINE BITARTRATE 4 MG IV PRN ×2 (19:35)
[2016-06-01] MEDS ORDERED: ONDANSETRON HCL INJ/PF 4 MG/2 ML SDV ONE (21:13)
[2016-06-01] MEDS: AZITHROMYCIN 500 MG in DEXTROSE 5%-WATER 250 ML IV SCH (21:17)
[2016-06-01] MEDS ORDERED: ONDANSETRON HCL INJ/PF 4 MG/2 ML SDV IV PRN (21:53)
[2016-06-02] MEDS: DEXTROSE 5%-WATER 250 ML with PHENYLEPHRINE HCL 40 MG IV PRN ×12 (03:56→22:47)
[2016-06-02] MEDS: LANSOPRAZOLE 30 MG TAB.RAP.DR PO SCH (05:02)
[2016-06-02] MEDS: CLINDAMYCIN 600 MG/D5W RTU 50 ML IV SCH ×3 (05:03→22:48)
[2016-06-02] MEDS: METHYLPREDNISOLONE INJ 40 MG/1 ML SDV IV SCH ×3 (05:03→22:48)
[2016-06-02] MEDS: MIDODRINE HCL 5 MG TABLET PO SCH ×3 (05:03→22:46)
[2016-06-02] MEDS: HEPARIN SOD (PORCINE) 5,000 UNIT/ML 1 ML SYRINGE SUBCUT SCH (05:07)
[2016-06-02 06:44] LABS: HEMOGLOBIN 11.7 g/dL (12.0-15.5); HGB HCT DIFFERENCE -1.9; MEAN CORPUSCULAR HEMOGLOBIN 28.7 pg (27.0-33.4); MEAN CORPUSCULAR HGB CONC 31.5 g/dL (32.0-36.0); MEAN CORPUSCULAR VOLUME 91 fl (80-97); RED BLOOD COUNT 4.06 10^6/uL (3.72-5.28); RED CELL DISTRIBUTION WIDTH 16.2 % (11.5-14.0); WHITE BLOOD COUNT 9.5 10^3/uL (4.0-10.5)
[2016-06-02] MEDS: NORMAL SALINE 1000 ML 1,000 ML IV PRN (06:48)
[2016-06-02 07:08] LABS: ALBUMIN 3.5 g/dL (3.5-5.0); ALKALINE PHOSPHATASE 354 U/L (38-126); BILIRUBIN,DIRECT 0.6 mg/dL (0.0-0.3); BILIRUBIN,TOTAL 2.4 mg/dL (0.2-1.3); BLOOD UREA NITROGEN 36 mg/dL (7-20); CALCIUM 8.8 mg/dL (8.4-10.2); CHLORIDE 90 mmol/L (98-107); CREATININE RESULT 6.58 mg/dL (0.52-1.25); GLUCOSE 163 mg/dL (75-110); SODIUM 133.4 mmol/L (137-145); TOTAL PROTEIN 6.7 g/dL (6.3-8.2)
[2016-06-02 07:18] LABS: BAND NEUTROPHILS % (MANUAL) 4 % (3-5); BASOPHILS % (MANUAL) 0 % (0-2); EOSINOPHILS % (MANUAL) 0 % (0-6); LYMPHOCYTES % (MANUAL) 15 % (13-45); TOTAL CELLS COUNTED 100
[2016-06-02 07:22] LABS: ANISOCYTOSIS 1+; BURR CELLS 1+; HYPOCHROMASIA SLIGHT; POIKILOCYTOSIS 1+; POLYCHROMASIA SLIGHT; TARGET CELLS SLIGHT; TOXIC VACUOLATION PRESENT
[2016-06-02 07:24] LABS: NUCLEATED RED BLOOD CELLS 27 /100 WBC (0)
[2016-06-02 07:37] LABS: ALANINE AMINOTRANSFERASE 5417 U/L (9-52); ASPARTATE AMINO TRANSFERASE 10095 U/L (14-36)
[2016-06-02 07:45] LABS: CARBON DIOXIDE 11 mmol/L (22-30)
[2016-06-02 07:46] LABS: ANION GAP 32 (5-19)
[2016-06-02 07:47] LABS: POTASSIUM 6.4 mmol/L (3.6-5.0)
[2016-06-02] MEDS: DEXTROSE 5%-WATER 250 ML with NOREPINEPHRINE BITARTRATE 4 MG IV PRN ×4 (08:05→18:42)
--- NOTE | 2016-06-02 09:12 | EKG REPORT ---
SEVERITY:- ABNORMAL ECG - SINUS RHYTHM FIRST DEGREE AV BLOCK RIGHT BUNDLE BRANCH BLOCK INFERIOR INFARCT, AGE INDETERMINATE ANTEROLATERAL INFARCT, AGE INDETERMINATE : Confirmed by: Chad Lynch MD 02-Jun-2016 09:10:49
[2016-06-02] MEDS: IMIPENEM/CILASTATIN SODIUM 250 MG in NORMAL SALINE 100 ML IV SCH (11:47)
[2016-06-02 12:27] LABS: PATH REVIEW PATHOLOGIST REVIEWED
--- NOTE | 2016-06-02 18:31 | PDOC PROGRESS REPORT ---
Subjective Progress Note for:: 06/02/16 Subjective:: Saw Mrs. Medrano in the ICU today. She has gotten worse. She has been dropping her blood pressures and Synepinephrine has been added on top of the Levophed now. Discussions have been done with the family and she is now made a DNR. She continues to be on BiPAP. She denies any history of chest pain. No history of any fever or chills. Discussions were done with the treating nurse Fátima. Labs were reviewed with the nurse.She is undergoing dialysis currently and is being supervised. Physical Exam Vital Signs: Temp Pulse Resp BP Pulse Ox 98.6 F 91 11 L 116/66 97 06/02/16 16:00 06/02/16 08:00 06/02/16 18:01 06/02/16 18:00 06/02/16 18:01 Intake & Output 06/01/16 06/02/16 06/03/16 06:59 06:59 06:59 Intake Total 1100 3140 1861 Output Total 500 0 50 Balance 600 3140 1811 Weight 126.4 kg 127.5 kg General appearance: PRESENT: mild distress Respiratory exam: PRESENT: clear to auscultation aleta, crackles, decreased breath sounds. ABSENT: rhonchi, stridor Cardiovascular exam: PRESENT: +S1, +S2 GI/Abdominal exam: PRESENT: soft, tenderness - The right upper quadrant. Mild. No guarding.. ABSENT: distended, firm, guarding Extremities exam: ABSENT: pedal edema Skin exam: PRESENT: dry. ABSENT: erythema, mottled, rash Results Laboratory Results: 06/02/16 06:30 06/02/16 06:30 06/02/16 06/02/16 06:30 06:30 WBC 9.5 RBC 4.06 Hgb 11.7 L Hct 37.0 MCV 91 MCH 28.7 MCHC 31.5 L RDW 16.2 H Plt Count 49 L Seg Neutrophils % Not Reportable Lymphocytes % Not Reportable Monocytes % Not Reportable Eosinophils % Not Reportable Basophils % Not Reportable Absolute Neutrophils Not Reportable Absolute Lymphocytes Not Reportable Absolute Monocytes Not Reportable Absolute Eosinophils Not Reportable Absolute Basophils Not Reportable Sodium 133.4 L Potassium 6.4 H* D Chloride 90 L Carbon Dioxide 11 L D Anion Gap 32 H BUN 36 H Creatinine 6.58 H Est GFR ( Amer) 7 L Est GFR (Non-Af Amer) 6 L Glucose 163 H Calcium 8.8 Total Bilirubin 2.4 H AST 35140 H ALT 5417 H Alkaline Phosphatase 354 H Total Protein 6.7 Albumin 3.5 Impressions: Acute Abdomen Series 05/31/16 09:34 IMPRESSION: Post right jugular central line placement with the tip in the superior vena cava. No pneumothorax. Nonspecific nonobstructive bowel gas pattern. Clips right upper quadrant post cholecystectomy. Abdomen Ultrasound 06/01/16 00:00 IMPRESSION: Limited study. No acute abnormality identified. Hepatic steatosis. Chest X-Ray 06/01/16 06:00 IMPRESSION: Consider 10 cm central line retraction. Otherwise, stable. KUB X-Ray 06/01/16 20:54 IMPRESSION: No acute findings. NG tube. Assessment & Plan - Diagnosis (1) Acute respiratory failure with hypoxemia Is this a current diagnosis for this admission?: YesPlan: She is on BiPAP and continued to get worse.. (2) Diabetes mellitus type 2 in obese Is this a current diagnosis for this admission?: Yes (3) ESRD on hemodialysis Is this a current diagnosis for this admission?: YesPlan: She was seen today and is undergoing dialysis currently. It is difficult for fluid extraction given her hypotension and on and is on double pressors. She is obviously severely in septic shock and fluid extraction is not going to happen. In fact she will remain positive through the dialysis, so that she can at least get a decent dialysis. (4) Elevated liver function tests Plan: She is got progressive abnormal LFTs. Her ultrasound was reviewed which showed hepatic steatosis. There was no evidences of any hepatic obstruction with normal CBD ducts. Therefore progressive elevation of her liver enzymes as part of her sepsis and indicates poor prognosis. (5) Hyperkalemia Plan: Resolved postdialysis. Monitor. (6) Hypotension Qualifiers: Hypotension type: unspecified hypotension type Qualified Code(s): I95.9 - Hypotension, unspecified Plan: From septic shock. On fluids. Discussed with nurse. Currently she is on double pressors. Overall poor prognosis. (7) Septic shock Plan: Not responding to current management. She is on double process. Overall poor prognosis.
[2016-06-02] MEDS: AZITHROMYCIN 500 MG in DEXTROSE 5%-WATER 250 ML IV SCH (20:18)
--- NOTE | 2016-06-02 20:42 | PDOC PROGRESS REPORT ---
Subjective Progress Note for:: 06/02/16 Subjective:: Patient's condition is very poor, she is not responding quite well Physical Exam Vital Signs: Temp Pulse Resp BP Pulse Ox 98.6 F 105 H 11 L 116/66 97 06/02/16 16:00 06/02/16 20:00 06/02/16 18:01 06/02/16 18:00 06/02/16 18:01 Intake & Output 06/01/16 06/02/16 06/03/16 06:59 06:59 06:59 Intake Total 1100 3140 1861 Output Total 500 0 50 Balance 600 3140 1811 Weight 126.4 kg 127.5 kg General appearance: PRESENT: obese Respiratory exam: PRESENT: decreased breath sounds Cardiovascular exam: PRESENT: +S1, +S2 GI/Abdominal exam: PRESENT: soft Results Laboratory Results: 06/02/16 06:30 06/02/16 06:30 06/02/16 06/02/16 06:30 06:30 WBC 9.5 RBC 4.06 Hgb 11.7 L Hct 37.0 MCV 91 MCH 28.7 MCHC 31.5 L RDW 16.2 H Plt Count 49 L Seg Neutrophils % Not Reportable Lymphocytes % Not Reportable Monocytes % Not Reportable Eosinophils % Not Reportable Basophils % Not Reportable Absolute Neutrophils Not Reportable Absolute Lymphocytes Not Reportable Absolute Monocytes Not Reportable Absolute Eosinophils Not Reportable Absolute Basophils Not Reportable Sodium 133.4 L Potassium 6.4 H* D Chloride 90 L Carbon Dioxide 11 L D Anion Gap 32 H BUN 36 H Creatinine 6.58 H Est GFR ( Amer) 7 L Est GFR (Non-Af Amer) 6 L Glucose 163 H Calcium 8.8 Total Bilirubin 2.4 H AST 68952 H ALT 5417 H Alkaline Phosphatase 354 H Total Protein 6.7 Albumin 3.5 Impressions: Acute Abdomen Series 05/31/16 09:34 IMPRESSION: Post right jugular central line placement with the tip in the superior vena cava. No pneumothorax. Nonspecific nonobstructive bowel gas pattern. Clips right upper quadrant post cholecystectomy. Abdomen Ultrasound 06/01/16 00:00 IMPRESSION: Limited study. No acute abnormality identified. Hepatic steatosis. Chest X-Ray 06/01/16 06:00 IMPRESSION: Consider 10 cm central line retraction. Otherwise, stable. KUB X-Ray 06/01/16 20:54 IMPRESSION: No acute findings. NG tube. Assessment & Plan - Diagnosis (1) Septic shock Is this a current diagnosis for this admission?: YesPlan: Patient is on 2 vasopressors, Levophed and Stas-Synephrine (2) Pneumonia Qualifiers: Pneumonia type: due to unspecified organism Laterality: unspecified laterality Lung location: unspecified part of lung Qualified Code(s) : J18.9 - Pneumonia, unspecified organism Is this a current diagnosis for this admission?: Yes (3) Acute respiratory failure with hypoxemia Is this a current diagnosis for this admission?: Yes (4) Diabetes mellitus type 2 in obese Is this a current diagnosis for this admission?: Yes (5) ESRD on hemodialysis Is this a current diagnosis for this admission?: Yes (7) Gouty arthropathy Is this a current diagnosis for this admission?: Yes (8) Sepsis with disseminated intravascular coagulopathy (DIC) Is this a current diagnosis for this admission?: YesPlan: She probably have DIC with low platelet count, elevated liver enzymes (9) Disseminated intravascular coagulopathy Is this a current diagnosis for this admission?: Yes
[2016-06-03] MEDS: IMIPENEM/CILASTATIN SODIUM 250 MG in NORMAL SALINE 100 ML IV SCH ×2 (01:01→11:25)
[2016-06-03] MEDS: DEXTROSE 5%-WATER 250 ML with PHENYLEPHRINE HCL 40 MG IV PRN ×8 (01:53→13:55)
[2016-06-03] MEDS: DEXTROSE 5%-WATER 250 ML with NOREPINEPHRINE BITARTRATE 4 MG IV PRN ×2 (05:37)
[2016-06-03] MEDS: CLINDAMYCIN 600 MG/D5W RTU 50 ML IV SCH ×2 (06:34→13:57)
[2016-06-03] MEDS: MIDODRINE HCL 5 MG TABLET PO SCH ×2 (06:35→13:57)
[2016-06-03] MEDS: METHYLPREDNISOLONE INJ 40 MG/1 ML SDV IV SCH ×2 (06:35→13:57)
[2016-06-03] MEDS: LANSOPRAZOLE 30 MG TAB.RAP.DR PO SCH (06:35)
[2016-06-03 07:02] LABS: ALBUMIN 2.8 g/dL (3.5-5.0); ALKALINE PHOSPHATASE 332 U/L (38-126); BILIRUBIN,DIRECT 0.7 mg/dL (0.0-0.3); BILIRUBIN,TOTAL 2.7 mg/dL (0.2-1.3); BLOOD UREA NITROGEN 28 mg/dL (7-20); CALCIUM 7.4 mg/dL (8.4-10.2); CREATININE RESULT 4.54 mg/dL (0.52-1.25); GLUCOSE 191 mg/dL (75-110); TOTAL PROTEIN 5.7 g/dL (6.3-8.2)
[2016-06-03 07:36] LABS: ALANINE AMINOTRANSFERASE 5203 U/L (9-52)
[2016-06-03 07:46] LABS: CARBON DIOXIDE 16 mmol/L (22-30); CHLORIDE 93 mmol/L (98-107); SODIUM 134.1 mmol/L (137-145)
[2016-06-03 07:57] LABS: ANION GAP 25 (5-19); ASPARTATE AMINO TRANSFERASE 7769 U/L (14-36)
[2016-06-03] MEDS ORDERED: MORPHINE SULFATE 10 MG/ML INJ IV PRN (11:50)
[2016-06-03] MEDS: NORMAL SALINE 1000 ML 1,000 ML IV PRN (13:55)
[2016-06-03] MEDS: MORPHINE SULFATE 10 MG/ML INJ IV PRN ×2 (15:21→17:27)
--- NOTE | 2016-06-03 17:14 | PDOC PROGRESS REPORT ---
Subjective Progress Note for:: 06/03/16 Subjective:: She has multiple organ failure in the setting of septic shock, had discussion with family about prognosis care was transitioned to comfort care measures patient not expected to do well. Physical Exam Vital Signs: Temp Pulse Resp BP Pulse Ox 97.4 F 90 12 101/69 95 06/03/16 14:26 06/03/16 14:26 06/03/16 14:26 06/03/16 14:26 06/03/16 14:26 Intake & Output 06/02/16 06/03/16 06/04/16 06:59 06:59 06:59 Intake Total 3140 3791 Output Total 0 50 Balance 3140 3741 Weight 127.5 kg 132 kg General appearance: PRESENT: other - Unresponsive Results Laboratory Results: 06/02/16 06:30 06/03/16 04:54 06/03/16 04:54 Sodium 134.1 L Potassium 5.0 D Chloride 93 L Carbon Dioxide 16 L Anion Gap 25 H BUN 28 H Creatinine 4.54 H Est GFR ( Amer) 11 L Est GFR (Non-Af Amer) 9 L Glucose 191 H Calcium 7.4 L Total Bilirubin 2.7 H AST 7769 H ALT 5203 H Alkaline Phosphatase 332 H Total Protein 5.7 L Albumin 2.8 L Impressions: Acute Abdomen Series 05/31/16 09:34 IMPRESSION: Post right jugular central line placement with the tip in the superior vena cava. No pneumothorax. Nonspecific nonobstructive bowel gas pattern. Clips right upper quadrant post cholecystectomy. Abdomen Ultrasound 06/01/16 00:00 IMPRESSION: Limited study. No acute abnormality identified. Hepatic steatosis. Chest X-Ray 06/01/16 06:00 IMPRESSION: Consider 10 cm central line retraction. Otherwise, stable. KUB X-Ray 06/01/16 20:54 IMPRESSION: No acute findings. NG tube. Assessment & Plan - Diagnosis (1) Septic shock Is this a current diagnosis for this admission?: Yes (2) Pneumonia Qualifiers: Pneumonia type: due to unspecified organism Laterality: unspecified laterality Lung location: unspecified part of lung Qualified Code(s) : J18.9 - Pneumonia, unspecified organism Is this a current diagnosis for this admission?: Yes (3) Acute respiratory failure with hypoxemia Is this a current diagnosis for this admission?: Yes (4) Diabetes mellitus type 2 in obese Is this a current diagnosis for this admission?: Yes (5) ESRD on hemodialysis Is this a current diagnosis for this admission?: Yes (7) Gouty arthropathy Is this a current diagnosis for this admission?: Yes (8) Sepsis with disseminated intravascular coagulopathy (DIC) Is this a current diagnosis for this admission?: Yes (9) Disseminated intravascular coagulopathy Is this a current diagnosis for this admission?: Yes
[2016-06-03 17:40] VITALS: BP 79/55
--- NOTE | 2016-06-05 19:37 | Death Summary ---
Summary Date : 06/03/16 Time of :: 18:50 - Final Diagnosis (1) Septic shock Is this a current diagnosis for this admission?: Yes (2) Pneumonia Is this a current diagnosis for this admission?: Yes (3) Acute respiratory failure with hypoxemia Is this a current diagnosis for this admission?: Yes (4) Diabetes mellitus type 2 in obese Is this a current diagnosis for this admission?: Yes (5) ESRD on hemodialysis Is this a current diagnosis for this admission?: Yes (7) Gouty arthropathy Is this a current diagnosis for this admission?: Yes (8) Sepsis with disseminated intravascular coagulopathy (DIC) Is this a current diagnosis for this admission?: Yes (9) Disseminated intravascular coagulopathy Is this a current diagnosis for this admission?: Yes Hospital Course:: Patient was admitted on 05/31/2016 when she presented with acute hypoxemic respiratory failure, pneumonia and sepsis syndrome. She has end-stage renal disease on maintenance hemodialysis, hospital course was complicated with septic shock. She required vasopressors with norepinephrine and phenylephrine. She was seen by nephrology Dr. Malhotra for management of dialysis, she was hypotensive and very minimal fluid was removed during dialysis. Patient required positive pressure ventilation with BiPAP during the hospital stay. There was multiple organ failure including liver failure she developed DIC. On admission patient was a full code the status was changed to DNR on Sunday, patient's condition continued to deteriorate and ultimately she was made comfort care measures per family wishes and she soon after that.
== END 2016-06-03 18:49 | disposition expired | DRG 871 ==
LOC: ER 06:28 → UNDOADMIN 11:28 → EH 11:28 → ICU 16:43 → EH 16:43
PROVIDERS: ADMIT Internal Medicine Geriatric Medicine; ATTEND Internal Medicine Geriatric Medicine
PROC: 02HV33Z Insertion of Infusion Device into Superior Vena Cava, Percutaneous Approach (ICD-10-PCS; principal; 2016-05-31)
PROC: B548ZZA Ultrasonography of Superior Vena Cava, Guidance (ICD-10-PCS; 2016-05-31)
PROC: 5A09457 Assistance with Respiratory Ventilation, 24-96 Consecutive Hours, Continuous Positive Airway Pressure (ICD-10-PCS; 2016-05-31)
DX: A41.9 Sepsis, unspecified organism (principal); R65.21 Severe sepsis with septic shock; J18.9 Pneumonia, unspecified organism; J96.01 Acute respiratory failure with hypoxia; D65 Disseminated intravascular coagulation [defibrination syndrome]; N18.6 End stage renal disease; I12.0 Hypertensive chronic kidney disease with stage 5 chronic kidney disease or end stage renal disease; E11.9 Type 2 diabetes mellitus without complications; E11.22 Type 2 diabetes mellitus with diabetic chronic kidney disease; Z99.2 Dependence on renal dialysis; K72.90 Hepatic failure, unspecified without coma; Z66 Do not resuscitate; E87.5 Hyperkalemia; M1A.9XX0 Chronic gout, unspecified, without tophus (tophi); E78.5 Hyperlipidemia, unspecified; Z89.612 Acquired absence of left leg above knee; Z89.611 Acquired absence of right leg above knee; F32.9 Major depressive disorder, single episode, unspecified; E86.0 Dehydration; I25.10 Atherosclerotic heart disease of native coronary artery without angina pectoris; M19.90 Unspecified osteoarthritis, unspecified site; Z90.49 Acquired absence of other specified parts of digestive tract; Z90.710 Acquired absence of both cervix and uterus; Z79.82 Long term (current) use of aspirin; Z79.4 Long term (current) use of insulin; Z88.0 Allergy status to penicillin
CPT/HCPCS: 36415; 71010; 74000; 74022; 76705; 80053; 80074; 82550; 82553; 82803; 82962; 83605; 83690; 83735; 84484; 85025; 85610; 85730; 87040; 93005; 93010; 94640; 94660; 96365; 96366; 96367; 96368; 99291; J0456; J0610; J0743; J1644; J1956; J2270; J2370; J2405; J2920; J3490; J7030; J7060